=== PATIENT | male | born 1970 | race Caucasian/White ===

== ENCOUNTER 2017-07-05 04:39 | Emergency (ER) | payer OTHER ==
[~2017-07-05] VITALS: Ht 172.7 cm; Wt 116.0 kg
[2017-07-05 04:41] VITALS: Ht 172.7 cm; Wt 116.0 kg
--- NOTE | 2017-07-05 04:54 | ERD ---
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 This current patient was spent on by a previous patient. Patient was checked in for routine blood work. ROS All systems reviewed and are negative except as per history of present illness. Allergies Allergies: Coded Allergies: amoxicillin (Verified Allergy, Unknown, 07/05/17) clavulanic acid (Verified Allergy, Unknown, 07/05/17) naproxen (Verified Allergy, Unknown, 07/05/17) Physical Exam Vitals Vital Signs Date Time Temp Pulse Resp B/P Pulse Ox O2 Delivery O2 Flow Rate FiO2 07/05/17 04:41 97.4 101 20 141/94 96 Physical Exam Const: No acute distress Head: Atraumatic Eyes: Normal Conjunctiva ENT: Normal External Ears, Nose and Mouth. Neck: Full range of motion..~ No meningismus. Resp: Clear to auscultation bilaterally Cardio: Regular rate and rhythm, no murmurs Abd: Soft, non tender, non distended. 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 The patient underwent blood work for HIV, hepatitis B and hepatitis C. Patient is refusing any anti-viral therapy at this time. Departure Diagnosis: Primary Impression: Patient exposure to body fluids Condition: Stable HERMELINDA GONSALES DO Jul 05, 2017 04:53
== END 2017-07-05 06:22 | disposition home or self-care (01) ==
LOC: E/R 04:39
DX: Z77.21 Contact with and (suspected) exposure to potentially hazardous body fluids (principal)
CPT/HCPCS: 86703; 86803; 87340; 99283